=== PATIENT | male | born 1985 | race Caucasian/White ===

== ENCOUNTER → 2016-11-15 | Outpatient (CLI) | payer BC ==
[~2016-11-15] MED LIST: AMBIEN 5MG TABLE5 MG PO; BUSPAR10 MG PO; CATAPRES 0.1MG0.1 MG PO; COZAAR 50MG50 MG/TAB PO; K-DUR 10 MEQ T10 MEQ PO; KLONOPIN 0.5MG0.5 MG PO; KLONOPIN 1MG1 MG PO; LAMICTAL 100MG100 MG PO; REMERON30 MG PO; XANAX .25M0.25 MG/TA PO
== END ==
LOC: BHSO 08:47
DX: F42.2 Mixed obsessional thoughts and acts (principal)

== ENCOUNTER → 2017-01-09 | Outpatient (CLI) | payer BC | LOC: BHSO 08:49 | DX: F42.2 Mixed obsessional thoughts and acts (principal) ==

== ENCOUNTER 2017-02-05 01:05 | Emergency (ER) | payer BC ==
[~2017-02-05] VITALS: Ht 190.5 cm; Wt 107.7 kg
[~2017-02-05 01:05] MED LIST changes: -KLONOPIN 0.5MG0.5 MG PO; -KLONOPIN 1MG1 MG PO; -LAMICTAL 100MG100 MG PO; -REMERON30 MG PO
[2017-02-05] MEDS ORDERED: LAMICTAL 100MG100 MG PO ×3 (01:10→01:11)
[2017-02-05] MEDS ORDERED: KLONOPIN 0.5MG0.5 MG PO ×2 (01:12)
[2017-02-05] MEDS ORDERED: KLONOPIN 1MG1 MG PO (01:12)
[2017-02-05] MEDS ORDERED: REMERON30 MG PO (01:13)
[2017-02-05 01:49] LABS: BASO % 0.3 % (0.0-2.0); EOS % 0.6 % (0-4.0); GRAN # 5.3 (1.4-6.5); GRAN % 81.7 % (42.2-75.2); HEMOGLOBIN 14.5 g/dl (13.5-18.0); LYMPH # 0.4 (1.2-3.4); LYMPH % 5.7 % (20.0-51.0); MEAN CELL VOLUME 90 fl (80.0-100.0); MEAN CORPUSCULAR HEMOGLOBIN 31 pg (27.0-31.0); MEAN CORPUSCULAR HGB CONC 34 g/dl (33.0-37.0); MEAN PLATELET VOLUME 10.4 fl (7.4-10.4); MONO # 0.7 (0.1-0.6); MONO % 11.4 % (1.7-9.3); PLATELET COUNT 147 K/mm3 (130-400); RED BLOOD COUNT 4.76 M/mm3 (4.20-5.60); WHITE BLOOD COUNT 6.5 K/mm3 (4.8-10.8)
[2017-02-05 02:00] LABS: ADJUSTED CALCIUM 8.9 mg/dL (8.4-10.2); ALBUMIN 4.4 gm/dL (3.5-5.0); BILIRUBIN,TOTAL 0.7 mg/dL (0.0-1.0); CALCIUM 9.2 mg/dL (8.4-10.2); CREATININE, serum 1.19 mg/dL (0.66-1.25); POTASSIUM 3.6 mmol/L (3.4-5.0); TOTAL PROTEIN 6.8 gm/dL (6.4-8.2)
[2017-02-05 02:36] VITALS: BP 130/86; PULSE 87; TEMP 100.3
== END 2017-02-05 02:44 | disposition home or self-care (01) ==
LOC: COL.ER 01:05
PROVIDERS: Nurse Practitioner
DX: E86.0 Dehydration (principal); R19.7 Diarrhea, unspecified; I10 Essential (primary) hypertension; R11.0 Nausea; R10.817 Generalized abdominal tenderness; F41.9 Anxiety disorder, unspecified
CPT/HCPCS: J1885; J2405; J7030

== ENCOUNTER 2017-02-05 21:14 | Emergency (ER) | payer BC ==
[~2017-02-05] VITALS: Ht 190.5 cm; Wt 108.0 kg
[~2017-02-05 21:14] MED LIST changes: +KLONOPIN 0.5MG0.5 MG PO; +KLONOPIN 1MG1 MG PO; +LAMICTAL 100MG100 MG PO; +REMERON30 MG PO
[2017-02-05 23:05] LABS: BASO % 0.2 % (0.0-2.0); GRAN # 4.5 (1.4-6.5); GRAN % 76.7 % (42.2-75.2); HEMATOCRIT 43.6 % (42.0-52.0); HEMOGLOBIN 14.6 g/dl (13.5-18.0); LYMPH # 0.6 (1.2-3.4); LYMPH % 10.5 % (20.0-51.0); MEAN CELL VOLUME 91 fl (80.0-100.0); MEAN CORPUSCULAR HEMOGLOBIN 30 pg (27.0-31.0); MEAN CORPUSCULAR HGB CONC 34 g/dl (33.0-37.0); MEAN PLATELET VOLUME 10.4 fl (7.4-10.4); MONO # 0.7 (0.1-0.6); MONO % 12.4 % (1.7-9.3); PLATELET COUNT 117 K/mm3 (130-400); RED BLOOD COUNT 4.82 M/mm3 (4.20-5.60); WHITE BLOOD COUNT 5.8 K/mm3 (4.8-10.8)
[2017-02-05 23:18] LABS: ADJUSTED CALCIUM 8.7 mg/dL (8.4-10.2); ALBUMIN 4.4 gm/dL (3.5-5.0); BILIRUBIN,TOTAL 0.8 mg/dL (0.0-1.0); C-REACTIVE PROTEIN 5.6 mg/dL (0.0-0.9); CREATININE, serum 1.32 mg/dL (0.66-1.25); POTASSIUM 3.8 mmol/L (3.4-5.0); TOTAL PROTEIN 7.1 gm/dL (6.4-8.2)
[2017-02-06 01:50] VITALS: BP 118/67; PULSE 90; TEMP 104.3
== END 2017-02-06 01:50 | disposition home or self-care (01) ==
LOC: COL.ER 21:14
PROVIDERS: Nurse Practitioner
DX: R10.33 Periumbilical pain (principal); R11.2 Nausea with vomiting, unspecified; F41.9 Anxiety disorder, unspecified
CPT/HCPCS: J2550; J7030; Q9967

== ENCOUNTER → 2017-03-06 | Outpatient (CLI) | payer BC | LOC: BHSO 09:14 | DX: F42.2 Mixed obsessional thoughts and acts (principal) ==

== ENCOUNTER → 2017-08-21 | Outpatient (CLI) | payer BC | LOC: BHSO 09:09 | DX: F43.9 Reaction to severe stress, unspecified (principal) ==

== ENCOUNTER → 2017-09-28 | Outpatient (CLI) | payer BC | LOC: BHSO 08:37 | DX: F41.1 Generalized anxiety disorder (principal) ==

== ENCOUNTER → 2017-11-02 | Outpatient (CLI) | payer BC | LOC: BHSO 09:42 | DX: F40.10 Social phobia, unspecified (principal) ==

== ENCOUNTER → 2017-11-16 | Outpatient (CLI) | payer BC | LOC: BHSO 09:51 | DX: F40.10 Social phobia, unspecified (principal) ==

== ENCOUNTER → 2017-11-30 | Outpatient (CLI) | payer BC | LOC: BHSO 09:43 | DX: F40.10 Social phobia, unspecified (principal) ==

== ENCOUNTER → 2017-12-14 | Outpatient (CLI) | payer BC | LOC: BHSO 09:52 | DX: F40.10 Social phobia, unspecified (principal) ==

== ENCOUNTER → 2018-01-04 | Outpatient (CLI) | payer BC | LOC: BHSO 09:45 | DX: F41.1 Generalized anxiety disorder (principal) ==

== ENCOUNTER → 2018-01-24 | Outpatient (CLI) | payer BC | LOC: BHSO 09:42 | DX: F41.1 Generalized anxiety disorder (principal) ==

== ENCOUNTER → 2018-02-28 | Outpatient (CLI) | payer BC | LOC: BHSO 09:42 | DX: F41.1 Generalized anxiety disorder (principal) ==

== ENCOUNTER → 2018-04-05 | Outpatient (CLI) | payer BC | LOC: BHSO 09:46 | DX: F41.1 Generalized anxiety disorder (principal) ==

== ENCOUNTER → 2018-05-17 | Outpatient (CLI) | payer BC | LOC: BHSO 09:54 | DX: F40.10 Social phobia, unspecified (principal) ==

== ENCOUNTER → 2018-06-13 | Outpatient (CLI) | payer BC | LOC: BHSO 09:42 | DX: F41.1 Generalized anxiety disorder (principal) ==

== ENCOUNTER → 2018-07-19 | Outpatient (CLI) | payer BC | LOC: BHSO 09:58 | DX: F41.1 Generalized anxiety disorder (principal) ==

== ENCOUNTER → 2018-09-13 | Outpatient (CLI) | payer BC | LOC: BHSO 09:50 | DX: F40.10 Social phobia, unspecified (principal) ==

== ENCOUNTER → 2018-10-25 | Outpatient (CLI) | payer BC | LOC: BHSO 09:49 | DX: F40.10 Social phobia, unspecified (principal) ==

== ENCOUNTER → 2018-12-06 | Outpatient (CLI) | payer BC | LOC: BHSO 09:55 | DX: F41.1 Generalized anxiety disorder (principal) ==

== ENCOUNTER → 2019-01-17 | Outpatient (CLI) | payer BC | LOC: BHSO 09:49 | DX: F40.10 Social phobia, unspecified (principal) ==

== ENCOUNTER → 2019-02-21 | Outpatient (CLI) | payer BC | LOC: BHSO 09:49 | DX: F40.10 Social phobia, unspecified (principal) ==

== ENCOUNTER → 2019-03-28 | Outpatient (CLI) | payer BC | LOC: BHSO 09:46 | DX: F40.10 Social phobia, unspecified (principal) ==

== ENCOUNTER → 2019-05-06 | Outpatient (CLI) | payer BC | LOC: COL.RAD 12:38 | DX: M19.071 Primary osteoarthritis, right ankle and foot (principal); M25.771 Osteophyte, right ankle; M89.771 Major osseous defect, right ankle and foot; Z87.81 Personal history of (healed) traumatic fracture ==